=== PATIENT | female | born 1990 | race Caucasian/White ===

== ENCOUNTER 2021-05-11 14:05 | Inpatient (IN) | payer MEDICAID, SELFPAY ==
[2021-05-11 14:06] VITALS: BP 129/84; PULSE 128; RESP 16; TEMP 36.6; O2SAT 97; BMI 27.8
--- NOTE | 2021-05-11 15:15 | HP.PCM.HOS_ITS ---
HPI - General General Date of Admission: 05/11/21 HPI Narrative JHONATAN OLEA, is a 30 F with a PMH as outlined who presents with a complaint of detox from opiates. SHe went through detox once in 2007. She says a few weeks ago, she went through withdrawal at [facility] for opiate withdrawal and benzodiazepine withdrawal. She last used heroin at ~ 4am, and benzodiazepines ~ 5am. She doesnt use IV, but uses POO. She denies any palpitations, dizziness, nausea or vomiting, diarrhea, chest palpitaitions or any other symptoms. Review of systems is otherwise negative. Vitals showed BP of 129/84, ND of 128, RR of 16. CBC, BMP and urine tox were pending. She has been admitted to manage for acute benzo diazepam and opiate withdrawal. [facility] Medical History Anxiety Depression Substance abuse Home Medications baclofen 10 mg PO TID 05/11/21 [History Last Taken Unknown] buspirone [BuSpar] 15 mg PO TID 05/11/21 [History Last Taken Unknown] clonidine HCl 0.1 mg PO TID 05/11/21 [History Last Taken Unknown] gabapentin [Neurontin] 300 mg PO BID 05/11/21 [History Last Taken Unknown] ondansetron HCl [Zofran] 4 mg PO Q6H PRN 05/11/21 [History Last Taken Unknown] quetiapine [Seroquel] 50 mg PO QHS 05/11/21 [History Last Taken Unknown] Allergy/AdvReac Type Severity Reaction Status Date / Time No Known Allergies Allergy Verified 05/11/21 14:07 Social History Smoking Status: Current every day smoker tobacco type: cigarettes ROS Constitutional Constitutional: Denies anorexia, chills, fatigue, fever(s), malaise or weakness Eyes Eyes: Denies change in vision ENT HEENT: Denies dysphagia, headache(s), nasal congestion, sinus pressure or sore throat Cardiovascular Cardiovascular: Reports palpitations and rapid heart rate; Denies chest pain, dyspnea on exertion, edema, lightheadedness, orthopnea, paroxysmal nocturnal dyspnea or syncope Respiratory/Chest Respiratory/Chest: Denies cough, dyspnea, hemoptysis, productive cough, shortness of breath at rest or shortness of breath with exertion Gastrointestinal Gastrointestinal: Denies abdominal pain, constipation, diarrhea, nausea or vomiting Genitourinary Genitourinary: Reports burning urination Musculoskeletal Musculoskeletal: Denies back pain Neurologic Neurologic: Denies confusion, dizziness or focal weakness Psychiatric Psychiatric: Denies anxiety Endocrine Endocrinology: Denies change in body appearance Hematologic/Lymphatic Hematologic/Lymphatic: Denies anemia Vital Signs Vital Signs Vital Signs: 05/11/21 14:06 Temperature 97.9 F Temperature Source Temporal Pulse Rate 128 H Respiratory Rate 16 Blood Pressure 129/84 H Blood Pressure Mean 99 Pulse Ox 97 Oxygen Delivery Method Room Air Weight Weight: 161 lb 13.109 oz Body Mass Index (BMI) 27.8 Physical Exam Const alert, oriented x3 and healthy appearing General Appearance: cooperative HEENT normocephalic, moist oral mucous membranes and oropharynx normal Eyes PERRL and conjunctivae normal Neck no lymphadenopathy Resp normal respiratory effort, no use of accessory muscles and clear to auscultation bilaterally Cardio regular rate, S1 normal heart sound, S2 normal heart sound and no murmurs GI normal to inspection, nondistended, normoactive bowel sounds, soft to palpation, non-tender and non-distended Extremity normal to inspection, full ROM and no clubbing, cyanosis or edema Peripheral Pulses: Yes pulses 2+ throughout Skin no rashes or lesions noted Neuro oriented x3, CN's II-XII intact bilaterally and moves all extremities Sensorium / Orientation: awake and alert Psych affect normal Results Lab / Micro Data Result Diagrams: 05/11/21 17:55 05/11/21 17:55 Assessment & Plan Assessment/Plan (1) Benzodiazepine withdrawal: (2) Opiate withdrawal: PLAN: #Acute opioid withdrawal * admit to med surg with telemetry o/a of tachycardia * CBC, BMP and uriine tox pending * start on opioid withdrawal protocol with buprenorphine * monitor COWS score * #Acute benzodiazepine withdrawal * urine tox pending * start on benzodiazepine withdrawal protocol with ativan * #History of hep C: treament naive. Counseled she would need to be off drugs for 6 months at least to qualiify for treatment. #Nicotine dependence; Nicotine patch 21mg daily DVT prophylaxis: low risk. Encourage ambulation. Charges/Coding Visit Charges Inpatient E&M: 08204 Init Hosp L3
--- NOTE | 2021-05-11 15:20 | EKG12_ITS ---
Test Reason : DETOX Blood Pressure : / mmHG Vent. Rate : 103 BPM Atrial Rate : 103 BPM P-R Int : 152 ms QRS Dur : 072 ms QT Int : 340 ms P-R-T Axes : 041 002 031 degrees QTc Int : 445 ms Sinus tachycardia Otherwise normal ECG Confirmed by DWIGHT WAN, ROLDAN ([id number]), marketing editor MONTANA JOHNSON ([id number]) on 05/12/2021 1:45:43 PM Referred By: YARIEL Confirmed By:ROLDAN QUINTANILLA MD
--- NOTE | 2021-05-11 15:53 | EDS_ITS ---
HPI History of Present Illness Chief Complaint: Substance Abuse Informant: patient Narrative Narrative: Patient presents requesting detox from heroin and benzodiazepine use. She states she uses about a gram of heroin a day and snorts it. She has not injected anything in years. She states she used to use 4-5 2 mg Xanax a day. She is down now. Her last Xanax was last night. Her last heroin use was early this morning. She states she has some mild itching of her skin and feels mild palpitations at this time. She has no physical complaints such as fevers chills nausea or vomiting. No diarrhea at this point. Patient went through detox once in 2007. She was also up at [facility] about 2 weeks ago. She was there she thinks for about 5 or 6 days. She left because she states they were treating her for benzodiazepine withdrawal but never treated her for heroin withdrawal. She has been out for about 6 or 7 days and did go back to using right away. [facility] Medical History Anxiety Depression Substance abuse Home Medications baclofen 10 mg PO TID 05/11/21 [History Last Taken 05/11/21 08:00] buspirone [BuSpar] 15 mg PO TID 05/11/21 [History Last Taken 05/11/21] clonidine HCl 0.1 mg PO TID 05/11/21 [History Last Taken 05/11/21] gabapentin [Neurontin] 300 mg PO BID 05/11/21 [History Last Taken 05/11/21] ondansetron HCl [Zofran] 4 mg PO Q6H PRN 05/11/21 [History Last Taken Unknown] quetiapine [Seroquel] 50 mg PO QHS 05/11/21 [History Last Taken 05/10/21] Allergy/AdvReac Type Severity Reaction Status Date / Time No Known Allergies Allergy Verified 05/11/21 14:07 no surgical history Social History Smoking Status: Current every day smoker tobacco type: cigarettes ROS ROS ED Constitutional Constitutional ED: Denies fever(s) Eyes Eyes: Denies blurry vision ENT ENT ED: Reports rhinorrhea; Denies sore throat Cardiovascular Cardiovascular: Denies chest pain Respiratory/Chest Respiratory/Chest: Denies cough or sputum Gastrointestinal Gastrointestinal: Denies abdominal pain, diarrhea, nausea or vomiting Genitourinary Genitourinary ED: Denies dysuria Musculoskeletal Musculoskeletal: Denies myalgias Integumentary Denies rash Neurologic Neurologic: Denies headache(s) Psychiatric Psychiatric: Reports depression Allergic/Immunologic Allergic/Immunologic ED: Denies urticaria EXAM Physical Exam Const Vital Signs: 05/11/21 14:06 Temperature 97.9 F Temperature Source Temporal Pulse Rate 128 H Respiratory Rate 16 Blood Pressure 129/84 H Blood Pressure Mean 99 Pulse Ox 97 Oxygen Delivery Method Room Air Positive well nourished and well developed General Appearance ED: well developed and NAD HEENT Reports moist mucous membranes Negative for trauma or tenderness Eyes General Eye ED: Negative for pale conjunctiva or scleral icterus Neck no lymphadenopathy Resp normal respiratory effort and clear to auscultation bilaterally Cardio regular rate, regular rhythm and no murmurs GI normal to inspection, nondistended, normoactive bowel sounds and non-tender Palpation: soft Back/Spine no CVA tenderness Extremity normal to inspection General Extremety ED: Negative for tenderness Neuro oriented x3 Sensorium / Orientation: alert Psych mental status grossly normal Skin no rashes or lesions noted and no wounds MDM MDM MDM Narrative Medical decision making narrative: Procedure: Femoral vein blood draw Multiple attempts were done to get blood from this patient. She states that is very hard. She has had to have blood drawn from her groin before. We discussed risks and benefits of this. The area was cleansed and scrubbed. Ultrasound was used to isolate the femoral vein versus artery. The area was anesthetized with 3 cc of 1% lidocaine locally to make it more comfortable for the patient. An 18-gauge was then inserted into the right femoral vein under direct continual visualization. A single puncture where he able to draw back blood easily. It was dark or venous type blood. This was sent off to the lab. She tolerated well. No sign of bleeding at the site. Blood work showed no marked abnormalities. Her tox screen had multiple positives. was negative. I discussed case with the hospitalist and she will be admitted. Lab Data Attestation: I reviewed the patient's lab results. Labs: Laboratory Results - last 24 hr 05/11/21 14:15 Urine Opiates Screen POSITIVE H Urine Methadone Screen NEGATIVE Ur Barbiturates Screen POSITIVE H Ur Phencyclidine Scrn NEGATIVE Ur Amphetamines Screen NEGATIVE U Methamphetamin-MDMA POSITIVE H U Benzodiazepines Scrn NEGATIVE Urine Cocaine Screen NEGATIVE U Cannabinoids Screen NEGATIVE Ur Drug Screen Comment Discharge Plan Dx/Rx/DC Orders Clinical Impression: Benzodiazepine withdrawal, Opiate withdrawal Disposition Disposition: Acute Care Hospital [facility] Discharge Date/Time: 05/11/21 18:14
[2021-05-11 15:56] LABS: Amphetamine Urine VISTA NEGATIVE (<1000 ng/mL); Barbiturate Urine VISTA POSITIVE (< 200 ng/mL); Benzodiazepine Urine VISTA NEGATIVE (< 200 ng/mL); Cocaine Urine VISTA NEGATIVE (< 300 ng/mL); Ecstacy Urine VISTA POSITIVE (< 500 ng/mL); Methadone Urine VISTA NEGATIVE (< 300 ng/mL); PCP Urine VISTA NEGATIVE (< 25 ng/mL); THC Urine VISTA NEGATIVE (< 50 ng/mL); Vista UDS pH Range 5
[2021-05-11 16:47] VITALS: BP 118/82; PULSE 82; RESP 15; TEMP 36.4
--- NOTE | 2021-05-11 17:39 | ED.RN ---
attempt x 4 unsuccessful to obtain labs dr lynn aware
[2021-05-11] MEDS: Lidocaine 1% (20 ml mdv) 20 ML Vial INFILT (18:01)
[2021-05-11 18:08] LABS: Absolute Lymphocyte Count 3.11 X10^3/uL (0.83-4.51); Absolute Neutrophil Count 3.9 X10^3/uL (2.0-7.7); Basophil# 0.06 X10^3/uL; Basophil% 0.7 % (0-1); Eosinophil# 0.44 X10^3/uL; Eosinophils% 5.4 % (0-5); Hematocrit 42.2 % (37-47); Hemoglobin 13.8 g/dL (12.0-15.0); Lymphocyte # 3.11 X10^3/ul (0.83-4.51); Lymphocyte % 38.2 % (19-41); Mean Corp Hgb Conc 32.7 g/dL (32-36); Mean Corpuscular Hgb 29.9 pg (27.0-32.0); Mean Corpuscular Volume 91.5 fL (81-99); Monocyte# 0.57 X10^3/uL; NRBC Flagged by Analyzer 0 % (0-5); Neutrophil # 3.93 X10^3/uL (2.7-7.7); Neutrophil % 48.2 % (47-70); Platelet Count 257 K/mm3 (150-450); RBC Distribution Width CV 12.1 % (11.6-14.6); RBC Distribution Width SD 39.9 fl (35.1-43.9); Red Blood Count 4.61 M/mm3 (4.2-5.4); White Blood Count 8.2 K/mm3 (4.4-11.0)
[2021-05-11 18:18] LABS: Internal QC Validated? YES +Cl - CLEAR BKGD; Pregnancy, Serum, hCG Quali. NEGATIVE Negative
[2021-05-11 18:20] LABS: Alcohol, Blood (Medical)-Serum < 3.0 mg/dL
[2021-05-11 18:31] VITALS: BMI 29.0
[2021-05-11 18:34] LABS: ALB/GLOB Ratio 0.8 RATIO (0.9-2.4); AST(SGOT) 85 U/L (15-37); Alanine Aminotransfer ALT/SGPT 122 U/L (13-56); Alkaline Phosphatase 98 U/L (45-117); Anion Gap 6 (5-15); BUN 3 mg/dL (7-18); BUN/Creat Ratio 5.7 RATIO (10-20); Calcium,Total 8.8 mg/dL (8.5-10.1); Chloride 107 mmol/L (98-107); Creatinine, Serum 0.53 mg/dL (0.55-1.02); EST Glomerular Filtration Rate 143 mL/min (>60); Est Glom Filt Rate - Afr Amer 173 mL/min (>60); Estimated Creatinine Clearance 132.81 ml/min; Globulin 3.9 g/dL (2.2-4.2); Glucose 135 mg/dL (74-106); Protein, Total 6.9 g/dL (6.4-8.2); Sodium Level 143 mmol/L (136-145)
--- NOTE | 2021-05-11 18:38 | PCS.PANDOC ---
PANDEMIC DOCUMENTATION INITIATED: Date: 04/14/2021 Time: 190
[2021-05-11 18:44] VITALS: BP 108/76; PULSE 76; RESP 16; TEMP 36.7; O2SAT 98
[2021-05-11 20:55] VITALS: PULSE 77
[2021-05-11] MEDS: LORazepam 1 MG Tablet 2 MG PO (21:16)
[2021-05-11 22:00] VITALS: PULSE 91
[2021-05-12] VITALS (10 sets, daily range): BP systolic 95–121; BP diastolic 53–72; PULSE 70–100; RESP 16–18; TEMP 36.6–37.1; O2SAT 93–100
[2021-05-12] MEDS: LORazepam 1 MG Tablet 2 MG PO ×4 (01:25→13:22)
--- NOTE | 2021-05-12 10:31 | ADDICTION ---
This video game script writer met with PT to conduct ASAM, MSE, DUDIT assessments and to plan for d/c. PT A+Ox4 and participated actively. All assessments completed, faxed to [facility] and placed in PT's chart. PT plans to direct admit to [facility] for residential treatment and counseling services. Once accepted transportation will be arranged post d/c from [facility].
--- NOTE | 2021-05-12 11:14 | ADDICTION ---
PT was approved for [facility] for residential services. Critical access hospital will provide transportation post d/c from [facility].
[2021-05-12] MEDS: Gabapentin 300 MG Capsule PO ×2 (11:48→20:16)
[2021-05-12] MEDS: cloNIDine HCl 0.1 MG Tablet PO ×2 (11:48→20:16)
[2021-05-12] MEDS: Loperamide 2 MG Capsule PO (11:48)
[2021-05-12] MEDS: COVID-19 VAC,AD26(JANSSEN)/PF 0.5 ML SYRINGE IM (12:14)
[2021-05-12] MEDS: Ondansetron 8 MG Tablet PO ×2 (12:29→20:16)
[2021-05-12 16:00] LABS: Absolute Lymphocyte Count 3.09 X10^3/uL (0.83-4.51); Absolute Neutrophil Count 2.9 X10^3/uL (2.0-7.7); Basophil# 0.04 X10^3/uL; Basophil% 0.6 % (0-1); Eosinophil# 0.36 X10^3/uL; Eosinophils% 5.1 % (0-5); Hematocrit 46.7 % (37-47); Hemoglobin 15.5 g/dL (12.0-15.0); Lymphocyte # 3.09 X10^3/ul (0.83-4.51); Lymphocyte % 44.1 % (19-41); Mean Corp Hgb Conc 33.2 g/dL (32-36); Mean Corpuscular Hgb 29.8 pg (27.0-32.0); Mean Corpuscular Volume 89.6 fL (81-99); Mean Platelet Vol. 11.4 fl (6.2-12.0); Monocyte# 0.58 X10^3/uL; Monocyte% 8.3 % (0-10); NRBC Flagged by Analyzer 0 % (0-5); Neutrophil % 41.3 % (47-70); POSITIVE COUNT YES; Platelet Count 163 K/mm3 (150-450); RBC Distribution Width CV 12.1 % (11.6-14.6); RBC Distribution Width SD 39.4 fl (35.1-43.9); Red Blood Count 5.21 M/mm3 (4.2-5.4)
[2021-05-12 16:25] LABS: Anion Gap 8 (5-15); BUN 4 mg/dL (7-18); BUN/Creat Ratio 8.9 RATIO (10-20); Calcium,Total 9.3 mg/dL (8.5-10.1); Chloride 106 mmol/L (98-107); Creatinine, Serum 0.45 mg/dL (0.55-1.02); EST Glomerular Filtration Rate 173 mL/min (>60); Est Glom Filt Rate - Afr Amer 209 mL/min (>60); Estimated Creatinine Clearance 156.42 ml/min; Glucose 111 mg/dL (74-106); Potassium 4.6 mmol/L (3.5-5.1); Sodium Level 141 mmol/L (136-145)
--- NOTE | 2021-05-12 16:35 | PCM.PN.HOSP ---
Subjective Subjective Feeling better. Was using fentanyl and several green bars of alprazolam daily (illicitly obtained) Objective Data Objective Data Vital Signs: Vital Signs Temp Pulse Resp BP Pulse Ox 36.8 C 91 18 106/72 93 05/12/21 13:21 05/12/21 13:21 05/12/21 13:21 05/12/21 13:21 05/12/21 13:21 Oxygen Delivery Method Room Air Weight: 76.9 kg Body Mass Index (BMI) 29.0 Intake & Output: Intake and Output for Last 24 Hours 05/10/21 05/11/21 05/12/21 23:59 23:59 23:59 Intake Total 560 / 560 Balance 560 / 560 Lab / Micro Data Result Diagrams: 05/11/21 17:55 05/12/21 15:25 Labs: Laboratory Results - last 24 hr 05/11/21 17:55: WBC 8.2, RBC 4.61, Hgb 13.8, Hct 42.2, MCV 91.5, MCH 29.9, MCHC 32.7, RDW Std Deviation 39.9, RDW Coeff of Juan 12.1, Plt Count 257, MPV 10.0, Immature Gran % (Auto) 0.500, Neut % (Auto) 48.2, Lymph % (Auto) 38.2, Duchesne % (Auto) 7.0, Eos % (Auto) 5.4 H, Baso % (Auto) 0.7, Absolute Neuts (auto) 3.9, Absolute Lymphs (auto) 3.11, Nucleated RBC % 0 05/11/21 17:55: Sodium 143, Potassium 4.0, Chloride 107, Carbon Dioxide 30.0, Anion Gap 6, BUN 3 L, Creatinine 0.53 L, Estim Creat Clear Calc 132.81, Est GFR (MDRD) Af Amer 173, Est GFR (MDRD) Non-Af 143, BUN/Creatinine Ratio 5.7 L, Glucose 135 H, Calcium 8.8, Total Bilirubin 0.40, AST 85 H, ALT 122 H, Alkaline Phosphatase 98, Total Protein 6.9, Albumin 3.0 L, Globulin 3.9, Albumin/Globulin Ratio 0.8 L 05/11/21 17:55: Ethyl Alcohol < 3.0 05/11/21 17:55: Serum , Qual NEGATIVE 05/12/21 15:25: Sodium 141, Potassium 4.6, Chloride 106, Carbon Dioxide 27.0, Anion Gap 8, BUN 4 L, Creatinine 0.45 L, Estim Creat Clear Calc 156.42, Est GFR (MDRD) Af Amer 209, Est GFR (MDRD) Non-Af 173, BUN/Creatinine Ratio 8.9 L, Glucose 111 H, Calcium 9.3 Micro: Microbiology 05/11/21 15:47 Nasal Secretion SARS-CoV-2 Antigen (Rapid) - Final Physical Exam Const alert HEENT Head and Scalp: normocephalic Resp normal respiratory effort, no retractions, no use of accessory muscles and clear to auscultation bilaterally Cardio regular rate, regular rhythm, S1 normal heart sound and S2 normal heart sound GI normal to inspection, nondistended, normoactive bowel sounds, soft to palpation, non-tender and non-distended Extremity normal to inspection Assessment & Plan Assessment/Plan (1) Benzodiazepine withdrawal: QUALIFIERS: Complication of substance-induced condition: uncomplicated Qualified Code(s): F13.230 - Sedative, hypnotic or anxiolytic dependence with withdrawal, uncomplicated (2) Opiate withdrawal: PLAN: #Acute opioid withdrawal start on opioid withdrawal protocol with buprenorphine seen by addiction med and pt to be discharged to [facility] for residential when medically ready. #Acute benzodiazepine withdrawal pt states that she uses several green bars of alprazolam/daily tox screen negative for BZDs change from lorazepam to alprazolam 0.5 BID, and if tolerates that, then could taper slowly over the next several weeks. #History of hep C: treament naive. Counseled she would need to be off drugs for 6 months at least to qualiify for treatment. #Nicotine dependence; Nicotine patch 21mg daily DVT prophylaxis: low risk. Encourage ambulation. Charges/Coding Visit Charges Inpatient E&M: 33136 Subs Hosp L2
[2021-05-12 16:36] LABS: Differential Indicated SCAN CRITERIA MET
[2021-05-12 16:44] LABS: Platelet Estimate ADEQUATE (ADEQ); Red Cell Morphology NORM C+C NORMAL (NORM C&C)
[2021-05-12] MEDS: Methocarbamol 750 MG Tablet 1500 MG PO (18:08)
[2021-05-12] MEDS: hydrOXYzine PAM 25 MG Capsule 50 MG PO (18:08)
[2021-05-12] MEDS: traZODone 100 MG Tablet PO (20:16)
[2021-05-12] MEDS: ALPRAZolam 0.5 MG Tablet PO (20:16)
[2021-05-13] MEDS: Methocarbamol 750 MG Tablet 1500 MG PO ×3 (00:20→16:00)
[2021-05-13] MEDS: hydrOXYzine PAM 25 MG Capsule 50 MG PO ×3 (00:20→20:18)
[2021-05-13 03:02] VITALS: BP 88/48; PULSE 86; RESP 14; TEMP 36.8; O2SAT 92
[2021-05-13] MEDS: Gabapentin 300 MG Capsule PO ×2 (06:14→16:00)
[2021-05-13] MEDS: Ondansetron 8 MG Tablet PO ×2 (06:14→16:00)
[2021-05-13 08:43] VITALS: BP 102/66; PULSE 100; RESP 18; TEMP 36.4; O2SAT 96
[2021-05-13] MEDS: ALPRAZolam 0.5 MG Tablet PO ×2 (10:13→21:17)
[2021-05-13] MEDS: Buprenorphine HCl 2 MG TAB.SUBL SL ×2 (10:23→18:03)
--- NOTE | 2021-05-13 11:23 | ADDICTION ---
Addiction therapist visited with patient today. She reports she is feeling significant w/d symptoms. TW informed nurse of pt's report.
[2021-05-13] MEDS: cloNIDine HCl 0.1 MG Tablet PO ×2 (12:59→20:18)
--- NOTE | 2021-05-13 14:12 | CASEMGMT ---
Addendum entered by Chichi Allen 05/13/21 17:51: SW received another message from CIRO Hodge at [employer] ([phone]) requesting update on discharge. SW placed a call to CIRO Hodge at [employer] and left message. Original Note: Social Work Note SW received call from CIRO Hodge with [employer] requesting update ([phone]). SW placed a call to CIRO Hodge with [employer] and left message. Chichi Allen AGENCY OWNER, [employer]
--- NOTE | 2021-05-13 14:56 | PN.HOSP_ITS ---
Subjective Subjective Still feels ill. Informs me that she has not been taking the buprenorphine because she is concerned about precipitated withdrawal. Patient apparently has had precipitated withdrawal before in the past with Suboxone. Objective Data Objective Data Vital Signs: Vital Signs Temp Pulse Resp BP Pulse Ox 36.4 C L 100 18 102/66 96 05/13/21 08:43 05/13/21 08:43 05/13/21 08:43 05/13/21 08:43 05/13/21 08:43 Oxygen Delivery Method Room Air Weight: 76.9 kg Body Mass Index (BMI) 29.0 Intake & Output: Intake and Output for Last 24 Hours 05/11/21 05/12/21 05/13/21 23:59 23:59 23:59 Intake Total 920 / 920 360 / 360 Balance 920 / 920 360 / 360 Lab / Micro Data Result Diagrams: 05/12/21 15:25 05/12/21 15:25 Labs: Laboratory Results - last 24 hr 05/12/21 15:25: WBC 7.0, RBC 5.21, Hgb 15.5 H, Hct 46.7, MCV 89.6, MCH 29.8, MCHC 33.2, RDW Std Deviation 39.4, RDW Coeff of Juan 12.1, Plt Count 163, MPV 11 .4, Immature Gran % (Auto) 0.600, Neut % (Auto) 41.3 L, Lymph % (Auto) 44.1 H, Nuckolls % (Auto) 8.3, Eos % (Auto) 5.1 H, Baso % (Auto) 0.6, Absolute Neuts (auto) 2.9, Absolute Lymphs (auto) 3.09, Nucleated RBC % 0, Platelet Estimate ADEQUATE, RBC Morphology NORM C+C 05/12/21 15:25: Sodium 141, Potassium 4.6, Chloride 106, Carbon Dioxide 27.0, Anion Gap 8, BUN 4 L, Creatinine 0.45 L, Estim Creat Clear Calc 156.42, Est GFR (MDRD) Af Amer 209, Est GFR (MDRD) Non-Af 173, BUN/Creatinine Ratio 8.9 L, Glucose 111 H, Calcium 9.3 Micro: Microbiology 05/11/21 15:47 Nasal Secretion SARS-CoV-2 Antigen (Rapid) - Final Physical Exam Const alert Resp normal respiratory effort, no retractions, no use of accessory muscles and clear to auscultation bilaterally Cardio regular rate, regular rhythm, S1 normal heart sound and S2 normal heart sound GI normal to inspection, nondistended, normoactive bowel sounds, soft to palpation, non-tender and non-distended Extremity normal to inspection Assessment & Plan Assessment/Plan (1) Benzodiazepine withdrawal: QUALIFIERS: Complication of substance-induced condition: uncomplicated Qualified Code(s): F13.230 - Sedative, hypnotic or anxiolytic dependence with withdrawal, uncomplicated (2) Opiate withdrawal: PLAN: #Acute opioid withdrawal * Patient was admitted on the and has yet to receive buprenorphine when I saw her earlier this morning. I told her that if she does not want and that certainly her right is she would not sustain any life-threatening injuries with opiate withdrawal. But she is here to get help. I told her that if she does not want to buprenorphine we will respect her decision but I would have to discharge her to continue with her therapy as outpatient. Eventually, patient did agree to take it and it was started today roughly 2 days after was ordered. * seen by addiction med and pt to be discharged to [facility] for residential when medically ready. #Acute benzodiazepine withdrawal * pt states that she uses several green bars of alprazolam/daily * tox screen negative for BZDs * change from lorazepam to alprazolam 0.5 BID, and if tolerates that, then could taper slowly over the next several weeks. #History of hep C: treament naive. Counseled she would need to be off drugs for 6 months at least to qualiify for treatment. #Nicotine dependence; Nicotine patch 21mg daily DVT prophylaxis: low risk. Encourage ambulation. Patient was vaccinated with a [employer] COVID-19 vaccine May 12. Charges/Coding Visit Charges Inpatient E&M: 48602 Subs Hosp L2
[2021-05-13 15:51] VITALS: BP 125/84; PULSE 83; RESP 16; TEMP 37; O2SAT 96
[2021-05-13 20:07] VITALS: BP 134/81; PULSE 82; RESP 16; TEMP 36.8; O2SAT 97
[2021-05-13] MEDS: Ibuprofen 600 MG Tablet PO (20:17)
[2021-05-13] MEDS: traZODone 100 MG Tablet PO (20:18)
[2021-05-14 02:16] VITALS: BP 96/63; PULSE 63; RESP 16; TEMP 36.5; O2SAT 96
[2021-05-14] MEDS: Buprenorphine HCl 2 MG TAB.SUBL SL ×3 (02:24→18:47)
[2021-05-14] MEDS: Ondansetron 8 MG Tablet PO ×2 (08:10→20:41)
[2021-05-14] MEDS: Gabapentin 300 MG Capsule PO ×2 (08:12→17:22)
[2021-05-14] MEDS: hydrOXYzine PAM 25 MG Capsule 50 MG PO ×2 (10:25→20:41)
[2021-05-14] MEDS: Ibuprofen 600 MG Tablet PO (10:26)
[2021-05-14] MEDS: Methocarbamol 750 MG Tablet 1500 MG PO ×2 (10:26→17:22)
[2021-05-14] MEDS: ALPRAZolam 0.5 MG Tablet PO (10:26)
[2021-05-14 10:28] VITALS: BP 104/68; PULSE 100; RESP 16; TEMP 36.7; O2SAT 99
[2021-05-14 13:11] VITALS: BP 114/71; PULSE 96
[2021-05-14] MEDS: Dicyclomine 10 MG Capsule 20 MG PO ×2 (13:16→20:41)
[2021-05-14] MEDS: cloNIDine HCl 0.1 MG Tablet PO (13:16)
--- NOTE | 2021-05-14 14:13 | PN.HOSP_ITS ---
Subjective Subjective Still feels ill. States she feels worse today. Objective Data Objective Data Vital Signs: Vital Signs Temp Pulse Resp BP Pulse Ox 36.7 C 96 16 114/71 99 05/14/21 10:28 05/14/21 13:11 05/14/21 10:28 05/14/21 13:11 05/14/21 10:28 Oxygen Delivery Method Room Air Weight: 76.9 kg Body Mass Index (BMI) 29.0 Intake & Output: Intake and Output for Last 24 Hours 05/12/21 05/13/21 05/14/21 23:59 23:59 23:59 Intake Total 920 / 920 360 / 360 Balance 920 / 920 360 / 360 Lab / Micro Data Result Diagrams: 05/12/21 15:25 05/12/21 15:25 Micro: Microbiology 05/11/21 15:47 Nasal Secretion SARS-CoV-2 Antigen (Rapid) - Final Physical Exam Const alert Constitutional Narrative: Uncomfortable. Nontoxic. Resp normal respiratory effort, no retractions, no use of accessory muscles and clear to auscultation bilaterally Cardio regular rate, regular rhythm, S1 normal heart sound and S2 normal heart sound GI normal to inspection, nondistended, normoactive bowel sounds, soft to palpation, non-tender and non-distended Assessment & Plan Assessment/Plan (1) Benzodiazepine withdrawal: QUALIFIERS: Complication of substance-induced condition: uncomplicated Qualified Code(s): F13.230 - Sedative, hypnotic or anxiolytic dependence with withdrawal, uncomplicated (2) Opiate withdrawal: PLAN: #Acute opioid withdrawal * Patient was admitted on the and has yet to receive buprenorphine when I saw her earlier this morning. I told her that if she does not want and that certainly her right is she would not sustain any life-threatening injuries with opiate withdrawal. But she is here to get help. I told her that if she does not want to buprenorphine we will respect her decision but I would have to discharge her to continue with her therapy as outpatient. Eventually, patient did agree to take it and it was started today roughly 2 days after was ordered. * seen by addiction med and pt to be discharged to [facility] for residential when medically ready. #Acute benzodiazepine withdrawal * pt states that she uses several green bars of alprazolam/daily * tox screen negative for BZDs * Still feeling ill. Will increase the alprazolam to 1 mg 3 times daily and observe. #History of hep C: treament naive. Counseled she would need to be off drugs for 6 months at least to qualiify for treatment. #Nicotine dependence; Nicotine patch 21mg daily DVT prophylaxis: low risk. Encourage ambulation. Patient was vaccinated with a [employer] COVID-19 vaccine May 12. Charges/Coding Visit Charges Inpatient E&M: 85979 Subs Hosp L2
[2021-05-14] MEDS: ALPRAZolam 0.5 MG Tablet 1 MG PO ×2 (15:53→20:41)
[2021-05-14 17:16] VITALS: BP 98/60; PULSE 72; RESP 16; TEMP 36.6
[2021-05-14 20:25] VITALS: BP 101/63; PULSE 78; RESP 16; TEMP 36.6; O2SAT 97
[2021-05-14] MEDS: traZODone 100 MG Tablet PO (20:41)
[2021-05-15 02:12] VITALS: BP 98/67; PULSE 64; RESP 14; TEMP 36.4; O2SAT 100
[2021-05-15] MEDS: Buprenorphine HCl 2 MG TAB.SUBL SL ×2 (02:17→10:22)
[2021-05-15] MEDS: hydrOXYzine PAM 25 MG Capsule 50 MG PO ×2 (04:02→10:22)
[2021-05-15] MEDS: Dicyclomine 10 MG Capsule 20 MG PO (04:02)
[2021-05-15] MEDS: Gabapentin 300 MG Capsule PO (04:02)
[2021-05-15] MEDS: Methocarbamol 750 MG Tablet 1500 MG PO (04:02)
[2021-05-15] MEDS: Senna/Docusate Sodium 1 Tablet 2 TABLET PO (06:06)
[2021-05-15] MEDS: ALPRAZolam 0.5 MG Tablet 1 MG PO (06:07)
--- NOTE | 2021-05-15 09:55 | ADDICTION ---
Pt is requesting to leave. She reports that she feels better and would like to got to the [facility]. This worker placed a called to inquire admission a PT leaving AMA. Waiting response.
[2021-05-15 10:18] VITALS: BP 121/75; PULSE 102; RESP 16; TEMP 36.1; O2SAT 98
[2021-05-15] MEDS: Ibuprofen 600 MG Tablet PO (10:22)
[2021-05-15] MEDS: cloNIDine HCl 0.1 MG Tablet PO (10:33)
--- NOTE | 2021-05-15 13:28 | PCM.DC.SUM ---
Providers Date of Admission: 05/11/21 Primary Care Physician: No Primary Care Phys Reason For Visit: ACUTE OPIOID AND BENZODIAZEPINE WITHDRAWAL Diagnosis Discharge Diagnosis (1) Benzodiazepine withdrawal: Status: Acute Code(s): F13.239 - Sedative, hypnotic or anxiolytic dependence with withdrawal, unspecified Qualifiers: Complication of substance-induced condition: uncomplicated Qualified Code(s): F13.230 - Sedative, hypnotic or anxiolytic dependence with withdrawal, uncomplicated (2) Opiate withdrawal: Status: Acute Code(s): F11.23 - Opioid dependence with withdrawal Medications at Discharge Home Medications baclofen 10 mg PO TID 05/11/21 buspirone [BuSpar] 15 mg PO TID 05/11/21 clonidine HCl 0.1 mg PO TID 05/11/21 gabapentin [Neurontin] 300 mg PO BID 05/11/21 ondansetron HCl [Zofran] 4 mg PO Q6H PRN 05/11/21 quetiapine [Seroquel] 50 mg PO QHS 05/11/21 Hospital Course Operations None Procedures None Summary of Care Provided Minutes Spent on Discharge: 28 Hospital Course: This is a 30-year-old female presents for fentanyl and benzodiazepine withdrawal. Patient is benzodiazepine she uses green bars. Patient was started on buprenorphine, however did not take that until the because she was worried about precipitated withdrawal. Discussed the patient that that is more associated with Suboxone and Subutex. Patient finally agreed to take and started on the . Patient was also started on benzodiazepines to help with her benzodiazepine withdrawal. Patient was on lorazepam changed over to alprazolam. Patient was on 0.5 mg of loprazolam twice daily on the 15 stated that she was feeling worse so the alprazolam was an increased to 1 mg 3 times daily. Today, the patient feels much better and wants to go home. She does complain of abdominal pain. I told her that we would need to have her have less somatic complaints prior to discharge and given that she was just started on phenobarbital that another day would be recommended. Patient stated that she just wants to get out smoke. Told her that we just need to have another day before we can look to discharge her to the residential program. Patient continued to be completed and I told her that we are try to help her and so that maintain sobriety and that she would need to be more medically optimized to enter into the residential program. I told her that this is a voluntary program and that she is certainly free to leave AGAINST MEDICAL ADVICE, but I would not be discharging her. Later today, addiction medicine went and spoke with her and she insisted on leaving AGAINST MEDICAL ADVICE. They later notified me that the patient stated that she was willing to go to the residential program after Wednesday when she has a court appointment. Those clear that the patient was getting go to a residential program directly from this hospital. Is concerned the patient is going to relapse and began using again but she is free to leave on her own accord. Physical Exam Const alert, oriented x3 and no apparent distress Constitutional Narrative: flat affect. Weight / BMI Weight Weight: 76.9 kg Body Mass Index (BMI) 29.0 ABG / Lab / Microbiology Data Result Diagrams: 05/12/21 15:25 05/12/21 15:25 Microbiology: Microbiology 05/11/21 15:47 Nasal Secretion SARS-CoV-2 Antigen (Rapid) - Final D/C Instructions Discharge Diet: No restrictions Meaningful Use Info Meaningful Use Diagnoses (Choose all that apply): None applicable Discharge Plan Admission Admit Date/Time: 05/11/21 15:37 Primary Reason for Your Visit: Fentanyl and benzodiazepine withdrawal. Attending Provider: Canelo Powell Primary Care Provider: Care PhysicianLeilani Primary Discharge Orders/Prescriptions Prescriptions: No Action clonidine HCl 0.1 mg Tablet 0.1 mg PO TID RF: 0 ondansetron HCl [Zofran] 4 mg Tablet 4 mg PO Q6H PRN (Reason: Nausea) RF: 0 baclofen 10 mg Tablet 10 mg PO TID RF: 0 gabapentin [Neurontin] 300 mg Capsule 300 mg PO BID RF: 0 buspirone [BuSpar] 15 mg Tablet 15 mg PO TID RF: 0 quetiapine [Seroquel] 50 mg Tablet 50 mg PO QHS RF: 0 Referrals / Follow Up: Care Physician,Leilani Primary [Primary Care Provider] - Disposition Disposition (needs filled in before D/C Order can be placed): Against Medical Advice Charges/Coding Visit Charges Inpatient E&M: 61377 Disch Hosp
--- NOTE | 2021-05-15 13:57 | NURSING ---
Late entry: at 1130 pt states wanting to leave AMA took form into pt and she signed the AMA.. pt called for ride and her ride will not be here until 1700. Talked with pt and pt will wait for her ride down at the main entrance. pt and belongs moved.
== END 2021-05-15 13:25 | disposition left against medical advice (07) | DRG 770 ==
LOC: ED 15:20 → MS3 15:51
PROVIDERS: Admitting Provider Student in an Organized Health Care Education/Training Program; Emergency Provider Emergency Medicine
DX: F11.23 Opioid dependence with withdrawal (principal); F13.230 Sedative, hypnotic or anxiolytic dependence with withdrawal, uncomplicated; F41.9 Anxiety disorder, unspecified; F32.9 Major depressive disorder, single episode, unspecified; Z23 Encounter for immunization; Z79.899 Other long term (current) drug therapy; F17.210 Nicotine dependence, cigarettes, uncomplicated; B19.20 Unspecified viral hepatitis C without hepatic coma
CPT/HCPCS: 0031A; 36415; 80048; 80053; 80307; 82077; 84703; 85025; 87426; 91303; 93005; 99283

== ENCOUNTER 2021-09-29 14:45 | Inpatient (IN) | payer MEDICAID, SELFPAY ==
[2021-09-29 14:46] VITALS: BP 97/64; PULSE 78; RESP 16; TEMP 36; O2SAT 94; BMI 29.1
[2021-09-29 15:58] VITALS: BP 91/62; PULSE 67; RESP 15; O2SAT 96
--- NOTE | 2021-09-29 16:00 | EDS_ITS ---
HPI History of Present Illness Chief Complaint: Substance Abuse Narrative Narrative: 31-year-old female presenting with desire for detox from fentanyl and benzodiazepines. She states she last use last evening. She states I was really high last night. She denies doing any drugs or alcohol today. Patient does have history of both abuse and detox from his medications. Patient states she took all of her medications today. She denies homicidal suicidal ideation. [facility] Medical History (Updated 09/29/21 @ 18:15 by Bailey Richards NP-C) Anxiety Depression Smoker Substance abuse Home Medications buspirone [BuSpar] 15 mg PO TID 05/11/21 [History Last Taken 05/11/21] clonidine HCl 0.1 mg PO TID 05/11/21 [History Last Taken 05/11/21] ondansetron HCl [Zofran] 4 mg PO Q6H PRN 05/11/21 [History Last Taken Unknown] quetiapine [Seroquel] 50 mg PO QHS 05/11/21 [History Last Taken 05/10/21] melatonin 5 mg PO QHS 09/29/21 [History Last Taken Unknown] topiramate 50 mg PO BID 09/29/21 [History Last Taken Unknown] trazodone 50 mg PO QHS 09/29/21 [History Last Taken Unknown] Allergy/AdvReac Type Severity Reaction Status Date / Time No Known Allergies Allergy Verified 09/29/21 14:45 Social History Smoking Status: Current every day smoker tobacco type: cigarettes ROS ROS ED Constitutional Constitutional ED: Denies chills or fever(s) Eyes Eyes: Denies blurry vision or change in vision ENT ENT ED: Denies rhinorrhea or sore throat Cardiovascular Cardiovascular: Denies chest pain or palpitations Respiratory/Chest Respiratory/Chest: Denies cough or dyspnea Gastrointestinal Gastrointestinal: Denies abdominal pain, nausea or vomiting Genitourinary Genitourinary ED: Denies dysuria or urinary frequency Musculoskeletal Musculoskeletal: Reports back pain; Denies arthralgias or myalgias Integumentary Denies Abrasions or rash Neurologic Neurologic: Denies headache(s) or paresthesias Psychiatric Psychiatric: Denies suicidal ideation or suicidal thoughts EXAM Physical Exam Const Vital Signs: 09/29/21 14:46 09/29/21 15:58 09/29/21 17:04 Temperature 96.8 F L Temperature Source Temporal Pulse Rate 78 67 69 Respiratory Rate 16 15 17 Blood Pressure 97/64 91/62 94/57 L Blood Pressure Mean 75 71 69 Pulse Ox 94 96 98 Oxygen Delivery Method Room Air Room Air Room Air Positive well nourished General Appearance ED: NAD HEENT Reports moist mucous membranes atraumatic Eyes PERRL and EOMs intact bilaterally Resp normal respiratory effort and clear to auscultation bilaterally Cardio regular rate and regular rhythm Neuro oriented x3 Sensorium / Orientation: alert Psych mental status grossly normal and thought process normal Skin Lesions: no lesions Rashes: no rashes MDM MDM MDM Narrative Medical decision making narrative: Patient resenting for detox. She does appear to be high on something currently. I attempted to give her some naloxone however she refused this. Blood pressure was slightly low at 97/64 however looking back in the medical history her blood pressure is not much higher than is usually. Her CBC and CMP are fairly unremarkable with exception of the AST and ALT which are elevated previously. hCG is negative. Urine drug screen is positive for amphetamines and benzodiazepines. Patient does do fentanyl and this may not be caught on routine urine drug screen. EtOH is negative. Discus sed with hospitalist for admission after medically cleared. Impression: 1. Fentanyl abuse 2. Benzodiazepine abuse 3. Presentation for detox from benzodiazepine fentanyl. Lab Data Attestation: I reviewed the patient's lab results. Labs: Laboratory Results - last 24 hr 09/29/21 09/29/21 09/29/21 16:25 16:25 16:25 WBC 8.1 RBC 4.75 Hgb 14.5 Hct 40.8 MCV 85.9 MCH 30.5 MCHC 35.5 RDW Std Deviation 39.3 RDW Coeff of Juan 12.5 Plt Count 225 MPV 10.1 Immature Gran % (Auto) 0.200 Neut % (Auto) 43.1 L Lymph % (Auto) 43.4 H [place] % (Auto) 6.3 Eos % (Auto) 6.5 H Baso % (Auto) 0.5 Absolute Neuts (auto) 3.5 Absolute Lymphs (auto) 3.50 Nucleated RBC % 0 Sodium 139 Potassium 3.5 Chloride 107 Carbon Dioxide 27.0 Anion Gap 5 BUN 12 Creatinine 0.74 Estim Creat Clear Calc 94.25 Est GFR (MDRD) Af Amer 118 Est GFR (MDRD) Non-Af 97 BUN/Creatinine Ratio 16.3 Glucose 110 H Calcium 8.8 Total Bilirubin 0.50 AST 157 H ALT 118 H Alkaline Phosphatase 97 Total Protein 7.5 Albumin 3.6 Globulin 3.9 Albumin/Globulin Ratio 0.9 Serum , Qual Urine Opiates Screen Urine Methadone Screen Ur Barbiturates Screen Ur Phencyclidine Scrn Ur Amphetamines Screen U Methamphetamin-MDMA U Benzodiazepines Scrn Urine Cocaine Screen U Cannabinoids Screen Ur Drug Screen Comment Ethyl Alcohol < 3.0 09/29/21 09/29/21 16:25 16:52 WBC RBC Hgb Hct MCV MCH MCHC RDW Std Deviation RDW Coeff of Juan Plt Count MPV Immature Gran % (Auto) Neut % (Auto) Lymph % (Auto) [place] % (Auto) Eos % (Auto) Baso % (Auto) Absolute Neuts (auto) Absolute Lymphs (auto) Nucleated RBC % Sodium Potassium Chloride Carbon Dioxide Anion Gap BUN Creatinine Estim Creat Clear Calc Est GFR (MDRD) Af Amer Est GFR (MDRD) Non-Af BUN/Creatinine Ratio Glucose Calcium Total Bilirubin AST ALT Alkaline Phosphatase Total Protein Albumin Globulin Albumin/Globulin Ratio Serum , Qual NEGATIVE Urine Opiates Screen NEGATIVE Urine Methadone Screen NEGATIVE Ur Barbiturates Screen NEGATIVE Ur Phencyclidine Scrn NEGATIVE Ur Amphetamines Screen NEGATIVE U Methamphetamin-MDMA POSITIVE H U Benzodiazepines Scrn POSITIVE H Urine Cocaine Screen NEGATIVE U Cannabinoids Screen NEGATIVE Ur Drug Screen Comment Ethyl Alcohol Discharge Plan Triage Chief Complaint: Substance Abuse ED Provider: Yoel Reid
[2021-09-29] MEDS: 0.9% Normal Saline 1,000 ML 999 ML IV (16:44)
--- NOTE | 2021-09-29 16:45 | ED.RN ---
pt refused Narcan. pt is alert and oriented, but appears sedated. dr was called into room to evaluate patient and Narcan ordered at that time. was informed of refusal. shima kraft rn [id number]
[2021-09-29 16:49] LABS: Absolute Neutrophil Count 3.5 X10^3/uL (2.0-7.7); Basophil# 0.04 X10^3/uL; Basophil% 0.5 % (0-1); Eosinophil# 0.52 X10^3/uL; Eosinophils% 6.5 % (0-5); Hematocrit 40.8 % (37-47); Hemoglobin 14.5 g/dL (12.0-15.0); Lymphocyte % 43.4 % (19-41); Mean Corp Hgb Conc 35.5 g/dL (32-36); Mean Corpuscular Hgb 30.5 pg (27.0-32.0); Mean Corpuscular Volume 85.9 fL (81-99); Mean Platelet Vol. 10.1 fl (6.2-12.0); Monocyte# 0.51 X10^3/uL; Monocyte% 6.3 % (0-10); NRBC Flagged by Analyzer 0 % (0-5); Neutrophil # 3.47 X10^3/uL (2.7-7.7); Neutrophil % 43.1 % (47-70); Platelet Count 225 K/mm3 (150-450); RBC Distribution Width CV 12.5 % (11.6-14.6); RBC Distribution Width SD 39.3 fl (35.1-43.9); Red Blood Count 4.75 M/mm3 (4.2-5.4); White Blood Count 8.1 K/mm3 (4.4-11.0)
[2021-09-29 17:04] VITALS: BP 94/57; PULSE 69; RESP 17; O2SAT 98
[2021-09-29 17:08] LABS: ALB/GLOB Ratio 0.9 RATIO (0.9-2.4); AST(SGOT) 157 U/L (15-37); Alanine Aminotransfer ALT/SGPT 118 U/L (13-56); Albumin, Serum 3.6 g/dL (3.2-5.0); Alkaline Phosphatase 97 U/L (45-117); Anion Gap 5 (5-15); BUN 12 mg/dL (7-18); BUN/Creat Ratio 16.3 RATIO (10-20); Calcium,Total 8.8 mg/dL (8.5-10.1); Chloride 107 mmol/L (98-107); Creatinine, Serum 0.74 mg/dL (0.55-1.02); EST Glomerular Filtration Rate 97 mL/min (>60); Est Glom Filt Rate - Afr Amer 118 mL/min (>60); Estimated Creatinine Clearance 94.25 ml/min; Globulin 3.9 g/dL (2.2-4.2); Glucose 110 mg/dL (74-106); Potassium 3.5 mmol/L (3.5-5.1); Protein, Total 7.5 g/dL (6.4-8.2); Sodium Level 139 mmol/L (136-145)
[2021-09-29 17:11] LABS: Alcohol, Blood (Medical)-Serum < 3.0 mg/dL
[2021-09-29 17:12] LABS: Internal QC Validated? YES +Cl - CLEAR BKGD; Pregnancy, Serum, hCG Quali. NEGATIVE Negative
[2021-09-29 17:26] LABS: Amphetamine Urine VISTA NEGATIVE (<1000 ng/mL); Barbiturate Urine VISTA NEGATIVE (< 200 ng/mL); Benzodiazepine Urine VISTA POSITIVE (< 200 ng/mL); Cocaine Urine VISTA NEGATIVE (< 300 ng/mL); Ecstacy Urine VISTA POSITIVE (< 500 ng/mL); Methadone Urine VISTA NEGATIVE (< 300 ng/mL); PCP Urine VISTA NEGATIVE (< 25 ng/mL); THC Urine VISTA NEGATIVE (< 50 ng/mL); Vista UDS pH Range 5
--- NOTE | 2021-09-29 17:45 | CM.ED ---
Addendum entered by Keyonna Cruz 09/29/21 17:50: Telephone call to Nga Aldridge. Treatment navigator. This long term care social worker updated on patient admission to [facility]. JESSE Knight Original Note: Social Work Consult: Substance Abuse Referral source: Self referral Attempted to meet with patient in room. Patient sleeping and did not wake up when this long term care social worker attempted to wake patient. This long term care social worker updated nursing. Nursing to patient room. Will continue to follow. LIZA Knight
[2021-09-29 17:47] VITALS: BP 99/71; PULSE 57; RESP 16; TEMP 36.7; O2SAT 95
--- NOTE | 2021-09-29 17:51 | NURSING ---
314 BENZO, FENTANYL DETOX NUAMAH
--- NOTE | 2021-09-29 18:04 | HP.PCM_ITS ---
Documented by User: IGGY Latham 09/29/21 18:20 HPI - General General Date of Admission: 09/29/21 Date of Service: 09/29/21 Chief Complaint: Benzo and opiate detox HPI Narrative JHONATAN OLEA, is a 31 F who presents with desire to detox from benzodiazepines and opiates. Patient reports that she has not used any drugs today and her last use was last night however patient appears lethargic, slurring her words. Patient reports that she uses opiates and benzodiazepines, urine drug screen positive for benzos and methamphetamines. Patient reports that she uses at least 1 g of fentanyl each day as well as 4 to 6 mg of Xanax daily. Patient reports that she initially went to [facility] to complete residential program however because patient is actively using and has not went through detox she was sent here to complete detox prior to entering residential program. It is of note that patient refused Narcan in the ER despite the fact that her blood pressure is low and she is lethargic and slurring her words. Patient's only medical history includes anxiety and depression. Patient has completed detox program prior. [facility] Medical History (Updated 09/29/21 @ 19:04 by Chichi Olivera) Anxiety Depression Migraines Seizures Smoker Substance abuse Home Medications buspirone [BuSpar] 15 mg PO TID 05/11/21 [History Last Taken 05/11/21] clonidine HCl 0.1 mg PO TID 05/11/21 [History Last Taken 05/11/21] ondansetron HCl [Zofran] 4 mg PO Q6H PRN 05/11/21 [History Last Taken Unknown] quetiapine [Seroquel] 50 mg PO QHS 05/11/21 [History Last Taken 05/10/21] melatonin 5 mg PO QHS 09/29/21 [History Last Taken Unknown] topiramate 50 mg PO BID 09/29/21 [History Last Taken Unknown] trazodone 50 mg PO QHS 09/29/21 [History Last Taken Unknown] Allergy/AdvReac Type Severity Reaction Status Date / Time No Known Allergies Allergy Verified 09/29/21 14:45 Family History unable to obtain unable to obtain Surgical History (Updated 09/29/21 @ 19:04 by Chichi Olivera) H/O dilation and curettage Surgical History no surgical history no surgical history Social History Smoking Status: Current every day smoker tobacco type: cigarettes ROS Constitutional Constitutional: Denies anorexia, chills, fatigue, fever(s) or weakness Cardiovascular Cardiovascular: Denies chest pain, edema, palpitations or syncope Respiratory/Chest Respiratory/Chest: Denies cough, shortness of breath at rest, shortness of breath with exertion or wheezing Gastrointestinal Gastrointestinal: Denies abdominal pain, constipation, diarrhea, nausea or vomiting Genitourinary Genitourinary: Denies dysuria or hematuria Musculoskeletal Musculoskeletal: Denies back pain, extremity pain, joint pain or joint stiffness Integumentary Integumentary: Denies dry skin or jaundice Neurologic Neurologic: Reports abnormal speech; Denies abnormal gait, confusion or dizziness Psychiatric Psychiatric: Reports anxiety and depression Endocrine Endocrinology: Denies change in body appearance Hematologic/Lymphatic Hematologic/Lymphatic: Denies anemia Vital Signs Vital Signs Vital Signs: 09/29/21 14:46 09/29/21 15:58 09/29/21 17:04 Temperature 96.8 F L Temperature Source Temporal Pulse Rate 78 67 69 Respiratory Rate 16 15 17 Blood Pressure 97/64 91/62 94/57 L Blood Pressure Mean 75 71 69 Pulse Ox 94 96 98 Oxygen Delivery Method Room Air Room Air Room Air 09/29/21 17:47 Temperature 98.0 F Temperature Source Temporal Pulse Rate 57 L Respiratory Rate 16 Blood Pressure 99/71 Blood Pressure Mean 80 Pulse Ox 95 Oxygen Delivery Method Room Air Weight Weight: 169 lb 12.095 oz Body Mass Index (BMI) 29.1 Physical Exam Const oriented x3 General Appearance: uncooperative and lethargic HEENT normocephalic and head/scalp atraumatic Eyes conjunctivae normal and no scleral icterus Neck no lymphadenopathy and supple General: trachea midline Resp normal respiratory effort, normal air movement and clear to auscultation bilaterally Cardio regular rate, regular rhythm, S1 normal heart sound, S2 normal heart sound and peripheral pulses 2+ throughout Rate: bradycardia GI normal to inspection, nondistended, normoactive bowel sounds, soft to palpation and non-tender Extremity normal capillary refill and no clubbing, cyanosis or edema General Extremity: no tenderness to palpation of joints or extremities Skin General Skin Exam: no breakdown and turgor normal Lesions: no lesions Rashes: no rashes Neuro Sensorium / Orientation: lethargic Speech: speech abnormal Details: Positive for slurred Psych Appearance: unkempt and disheveled Attitude: uncooperative Speech: slurred Mood & Affect: irritable Thought Process: disorganized Results Lab / Micro Data Result Diagrams: 09/29/21 16:25 09/29/21 16:25 Labs: Laboratory Results - last 24 hr 09/29/21 16:25: WBC 8.1, RBC 4.75, Hgb 14.5, Hct 40.8, MCV 85.9, MCH 30.5, MCHC 35.5, RDW Std Deviation 39.3, RDW Coeff of Juan 12.5, Plt Count 225, MPV 10.1, Immature Gran % (Auto) 0.200, Neut % (Auto) 43.1 L, Lymph % (Auto) 43.4 H, [place] % (Auto) 6.3, Eos % (Auto) 6.5 H, Baso % (Auto) 0.5, Absolute Neuts (auto) 3.5, Absolute Lymphs (auto) 3.50, Nucleated RBC % 0 09/29/21 16:25: Sodium 139, Potassium 3.5, Chloride 107, Carbon Dioxide 27.0, Anion Gap 5, BUN 12, Creatinine 0.74, Estim Creat Clear Calc 94.25, Est GFR (MDRD) Af Amer 118, Est GFR (MDRD) Non-Af 97, BUN/Creatinine Ratio 16.3, Glucose 110 H, Calcium 8.8, Total Bilirubin 0.50, AST 157 H, ALT 118 H, Alkaline Phosphatase 97, Total Protein 7.5, Albumin 3.6, Globulin 3.9, Albumin/Globulin Ratio 0.9 09/29/21 16:25: Ethyl Alcohol < 3.0 09/29/21 16:25: Serum , Qual NEGATIVE 09/29/21 16:52: Urine Opiates Screen NEGATIVE, Urine Methadone Screen NEGATIVE, Ur Barbiturates Screen NEGATIVE, Ur Phencyclidine Scrn NEGATIVE, Ur Amphetamines Screen NEGATIVE, U Methamphetamin-MDMA POSITIVE H, U Benzodiazepines Scrn POSITIVE H, Urine Cocaine Screen NEGATIVE, U Cannabinoids Screen NEGATIVE, Ur Drug Screen Comment Assessment & Plan Assessment/Plan (1) Substance abuse: (2) Smoker: (3) Desire for detoxification: PLAN: 1. Desire for detoxification from benzodiazepines and opiates -Patient admitted to [facility] as part of ramp program -Phenobarbital and buprenorphine taper ordered -Supportive medications ordered as needed as well -Case management consulted for coordination with 180. Patient went to 180 prior to arrival to ER however because patient was still actively using 180 inform patient that she need to go through detox before she could be admitted to residential program. -Patient states that she has not used today however patient does appear lethargic with slurred words. Patient also refused Narcan in ER as she says it makes her feel funny. -Normal saline 100 mL/h ordered -We will hold patient's home sedating medications at this time 2. Tobacco abuse -Nicotine patch ordered -Inpatient smoking cessation ordered 3. Anxiety and depression -We will continue patient's home buspirone, clonidine, Topamax. -We will hold Seroquel and trazodone at this time due to patient's lethargic presentation in ER. DVT prophylaxis-low risk, encourage ambulation This patient was seen by Bailey Richards NP-C under the supervision of Dr. Cani. 29 minutes spent in clinical coordination of patient's plan of care. Documented by User: Dr. Anali Cain MD 09/29/21 19:06 HPI - General General Date of Admission: 09/29/21 [facility] Medical History (Updated 09/29/21 @ 19:04 by Chichi Olivera) Anxiety Depression Migraines Seizures Smoker Substance abuse Home Medications buspirone [BuSpar] 15 mg PO TID 05/11/21 [History Last Taken 05/11/21] clonidine HCl 0.1 mg PO TID 05/11/21 [History Last Taken 05/11/21] ondansetron HCl [Zofran] 4 mg PO Q6H PRN 05/11/21 [History Last Taken Unknown] quetiapine [Seroquel] 50 mg PO QHS 05/11/21 [History Last Taken 05/10/21] melatonin 5 mg PO QHS 09/29/21 [History Last Taken Unknown] topiramate 50 mg PO BID 09/29/21 [History Last Taken Unknown] trazodone 50 mg PO QHS 09/29/21 [History Last Taken Unknown] Allergy/AdvReac Type Severity Reaction Status Date / Time No Known Allergies Allergy Verified 09/29/21 14:45 Family History unable to obtain Surgical History (Updated 09/29/21 @ 19:04 by Chichi Olivera) H/O dilation and curettage Surgical History no surgical history Social History Smoking Status: Current every day smoker tobacco type: cigarettes Results Lab / Micro Data Result Diagrams: 09/29/21 16:25 09/29/21 16:25 Charges/Coding Addendum Addendum: This patient was seen in conjunction with Milton Richards NP. I have independently interviewed and examined the patient and reviewed pertinent historical, laboratory, and other data. I have reviewed her note and concur with her documentation 31-year-old female who presents with desire to detox from benzodiazepines and opiate. Patient stated that she last used benzos and opioids?fentanyl and night before admission. She usually has 1 g of fentanyl daily as well as 4 to 6 mg of Xanax. She is however very lethargic. Vitals in the ED were stable. Temperature 96.8 F, heart rate 76, respiratory 16, BP was 97/64, SPO2 was 94% on room air Physical Exam: Gen: Lethargic, not pale, not jaundiced CVS:HS I +II, regular, no murmurs RESP: CTA GI: BS present and normal, soft, nontender, no palpable organs EXT:No edema Labs:CBCD and CMP were unremarkable except AST was 157, ALT was 1 1 ASSESSMENT: 1. Desire for acute opiate and benzodiazepine withdrawal 2. Anxiety/depression 3. Nicotine dependence 4. Elevated liver enzymes, appears chronic Plan: Admit for benzo and opiate withdrawal check hepatitis profile, HIV Continue on home BuSpar, Seroquel, trazodone Time spent taking history, physical exam, independently, coordinating patient's care, discussing with nursin minutes Visit Charges Inpatient E&M: 33924 Init Hosp L2
[2021-09-29 18:56] VITALS: BMI 29.0
[2021-09-29 19:22] VITALS: BP 91/62; PULSE 50; RESP 12; TEMP 36.5; O2SAT 98
[2021-09-29] MEDS: 0.9% Normal Saline 1,000 ML 100 ML IV (20:19)
[2021-09-29] MEDS: 0.9% Saline Lock 10 ML Syringe IV (20:19)
--- NOTE | 2021-09-29 20:27 | NURSING ---
Patient is very drowsy, pupils dilated, speech hard to understand, can't stay awake and won't answer assessment questions, HR is irregular rate is 64. Will continue to monitor. Cow score 2.
[2021-09-29 21:00] LABS: HIV - WCH Non-Reactive (Nonreactive)
[2021-09-30] MEDS: busPIRone 15 MG TABLET PO ×4 (00:18→20:29)
[2021-09-30] MEDS: Topiramate 50 MG Tablet PO ×3 (00:23→20:29)
[2021-09-30 00:34] VITALS: BP 90/65; PULSE 61; RESP 16; TEMP 36.6; O2SAT 97
[2021-09-30] MEDS: 0.9% Normal Saline 1,000 ML 100 ML IV (06:08)
[2021-09-30 09:06] VITALS: BP 109/62; PULSE 86; RESP 14; TEMP 36.3; O2SAT 97
[2021-09-30] MEDS: Phenobarbital 32.4 MG Tablet 64.8 MG PO ×4 (09:17→20:29)
[2021-09-30] MEDS: Gabapentin 300 MG Capsule PO (09:17)
--- NOTE | 2021-09-30 10:34 | ADDICTION ---
This flex o writer operator met with PT to conduct ASAM, MSE, AUDIT, DUDIT assessments and to plan for d/c. PT A+Ox4 and participated actively. All assessments completed and placed in PT's chart. PT plans to f/u with [facility] for follow-up treatment services. [facility] will provide transportation post d/c from [facility].
[2021-09-30] MEDS: Methocarbamol 750 MG Tablet 1500 MG PO ×2 (11:32→20:30)
[2021-09-30 13:00] VITALS: BP 97/59; PULSE 63; RESP 12; TEMP 36.4; O2SAT 96
--- NOTE | 2021-09-30 14:25 | PN.HOSP_ITS ---
Subjective Subjective Feels ok currently. Objective Data Objective Data Vital Signs: Vital Signs Temp Pulse Resp BP Pulse Ox 36.4 C L 63 12 97/59 L 96 09/30/21 13:00 09/30/21 13:00 09/30/21 13:00 09/30/21 13:00 09/30/21 13:00 Oxygen Delivery Method Room Air Weight: 76.702 kg Body Mass Index (BMI) 29.0 Intake & Output: Intake and Output for Last 24 Hours 09/28/21 09/29/21 09/30/21 23:59 23:59 23:59 Intake Total 1000 / 1000 981.67 / 981.67 Balance 1000 / 1000 981.67 / 981.67 Lab / Micro Data Result Diagrams: 09/29/21 16:25 09/29/21 16:25 Labs: Laboratory Results - last 24 hr 09/29/21 16:25: WBC 8.1, RBC 4.75, Hgb 14.5, Hct 40.8, MCV 85.9, MCH 30.5, MCHC 35.5, RDW Std Deviation 39.3, RDW Coeff of Juan 12.5, Plt Count 225, MPV 10.1, Immature Gran % (Auto) 0.200, Neut % (Auto) 43.1 L, Lymph % (Auto) 43.4 H, [place] % (Auto) 6.3, Eos % (Auto) 6.5 H, Baso % (Auto) 0.5, Absolute Neuts (auto) 3.5, Absolute Lymphs (auto) 3.50, Nucleated RBC % 0 09/29/21 16:25: Sodium 139, Potassium 3.5, Chloride 107, Carbon Dioxide 27.0, Anion Gap 5, BUN 12, Creatinine 0.74, Estim Creat Clear Calc 94.25, Est GFR (MDRD) Af Amer 118, Est GFR (MDRD) Non-Af 97, BUN/Creatinine Ratio 16.3, Glucose 110 H, Calcium 8.8, Total Bilirubin 0.50, AST 157 H, ALT 118 H, Alkaline Phosphatase 97, Total Protein 7.5, Albumin 3.6, Globulin 3.9, Albumin/Globulin Ratio 0.9 09/29/21 16:25: Ethyl Alcohol < 3.0 09/29/21 16:25: Serum , Qual NEGATIVE 09/29/21 16:25: HIV 1&2 Antibody Non-Reactive 09/29/21 16:52: Urine Opiates Screen NEGATIVE, Urine Methadone Screen NEGATIVE, Ur Barbiturates Screen NEGATIVE, Ur Phencyclidine Scrn NEGATIVE, Ur Amphetamines Screen NEGATIVE, U Methamphetamin-MDMA POSITIVE H, U Benzodiazepines Scrn POSITIVE H, Urine Cocaine Screen NEGATIVE, U Cannabinoids Screen NEGATIVE, Ur Drug Screen Comment Physical Exam Const alert and no apparent distress Resp normal respiratory effort, no retractions and no use of accessory muscles Cardio regular rate, regular rhythm, S1 normal heart sound and S2 normal heart sound GI normal to inspection, nondistended, normoactive bowel sounds, soft to palpation, non-tender and non-distended Extremity normal to inspection Assessment & Plan Assessment/Plan (1) Opiate withdrawal: (2) Benzodiazepine withdrawal: QUALIFIERS: Complication of substance-induced condition: uncomplicated Qualified Code(s): F13.230 - Sedative, hypnotic or anxiolytic dependence with withdrawal, uncomplicated PLAN: 1. Acute opiate withdrawal On buprenorphine taper 2. benzodiazepine withdrawal on phenobarbital taper. Charges/Coding Visit Charges Inpatient E&M: 65555 Subs Hosp L2
[2021-09-30 16:53] VITALS: BP 98/63; PULSE 55; RESP 14; TEMP 36.6; O2SAT 97
[2021-09-30] MEDS: QUEtiapine 25 MG Tablet 50 MG PO (20:30)
[2021-09-30 20:31] VITALS: BP 97/69; PULSE 55; RESP 16; TEMP 36.8; O2SAT 96
[2021-10-01] VITALS (7 sets, daily range): BP systolic 88–104; BP diastolic 56–77; PULSE 56–68; RESP 16–18; TEMP 36.4–37.1; O2SAT 95–99
[2021-10-01] MEDS: Phenobarbital 32.4 MG Tablet 64.8 MG PO ×6 (00:33→21:00)
[2021-10-01] MEDS: Gabapentin 300 MG Capsule PO (05:03)
[2021-10-01] MEDS: Methocarbamol 750 MG Tablet 1500 MG PO ×3 (05:03→21:21)
[2021-10-01] MEDS: Ondansetron 8 MG Tablet PO (05:03)
[2021-10-01] MEDS: busPIRone 15 MG TABLET PO ×3 (05:06→21:01)
[2021-10-01] MEDS: Topiramate 50 MG Tablet PO ×2 (07:46→21:02)
[2021-10-01 08:09] LABS: HEPATITIS B SURFACE AG Negative (Negative); Hepatitis A IgM Antibody Negative (Negative); Hepatitis B Core AB IgM Negative (Negative)
[2021-10-01] MEDS: hydrOXYzine PAM 25 MG Capsule 50 MG PO (12:07)
--- NOTE | 2021-10-01 12:50 | PCM.PN.HOSP ---
Subjective Subjective has been very groggy and has not received buprenorphine. Objective Data Objective Data Vital Signs: Vital Signs Temp Pulse Resp BP Pulse Ox 36.4 C L 62 16 104/77 99 10/01/21 12:19 10/01/21 12:19 10/01/21 12:19 10/01/21 12:19 10/01/21 12:19 Oxygen Delivery Method Room Air Weight: 76.702 kg Body Mass Index (BMI) 29.0 Intake & Output: Intake and Output for Last 24 Hours 09/29/21 09/30/21 10/01/21 23:59 23:59 23:59 Intake Total 1000 / 1000 1568.34 / 1568.34 300 / 300 Balance 1000 / 1000 1568.34 / 1568.34 300 / 300 Lab / Micro Data Result Diagrams: 09/29/21 16:25 09/29/21 16:25 Physical Exam Const alert Constitutional Narrative: slightly groggy, but answers questions appropriately. Psych affect normal Mood & Affect: depressed Assessment & Plan Assessment/Plan (1) Opiate withdrawal: (2) Benzodiazepine withdrawal: QUALIFIERS: Complication of substance-induced condition: uncomplicated Qualified Code(s): F13.230 - Sedative, hypnotic or anxiolytic dependence with withdrawal, uncomplicated PLAN: 1. Acute opiate withdrawal Had not received buprenorphine due to her being too groggy and BP being marginal Plan for residential program on 10/03 2. benzodiazepine withdrawal on phenobarbital taper. Charges/Coding Visit Charges Inpatient E&M: 81895 Subs Hosp L1
[2021-10-01 13:19] LABS: Hep C Antibodies >11.0 s/co ratio (0.0-0.9)
--- NOTE | 2021-10-01 17:00 | CHAPLAIN ---
Type of Pastoral Visit ___ Initial Visit ___ Follow-up Visit ___ On-call Visit ___ General Patient Visit ___ Spiritual Assessment ___ Family Conference ___ Bereavement ___ Rapid Response ___ Code Blue _x__ Other (describe below) Pastoral Care Referral From _x__ Patient ___ Family ___ Nurse ___ Physician ___ Candle Molder ___ Helper Coordinator ___ Other (describe below) Sacrament/Intervention ___ Active listening ___ Anointing ___ Catholic ___ Bereavement ___ Communion ___ Marina exploration ___ ___ Life review ___ Prayer ___ Reconciliation ___ Sacrament of Sick ___ Supportive presence ___ Wedding _x__ Other (describe below) Pastoral Comments three attempts made over last two days to visit and support this patient and each time the patient was sleeping; at first visit this day the patient did awaken from sleep but requested a return visit later today; on return the patient is again sound asleep
[2021-10-01] MEDS: QUEtiapine 25 MG Tablet 50 MG PO (21:02)
[2021-10-02 00:23] VITALS: BP 81/54; PULSE 55; RESP 16; TEMP 36.3; O2SAT 97
[2021-10-02] MEDS: Ondansetron 8 MG Tablet PO (00:44)
[2021-10-02 02:58] VITALS: PULSE 66; O2SAT 96
[2021-10-02 04:12] VITALS: BP 90/68; PULSE 57; RESP 14; TEMP 36.1; O2SAT 98
[2021-10-02 06:36] VITALS: PULSE 57; RESP 18; O2SAT 97
[2021-10-02] MEDS: busPIRone 15 MG TABLET PO (06:38)
[2021-10-02] MEDS: Phenobarbital 32.4 MG Tablet 64.8 MG PO (06:52)
--- NOTE | 2021-10-02 07:05 | NURSING ---
Bag of pills discovered by [employer] in pt's pocket when taking pt to the bathroom. Pills confiscated. Director notified and given bag of pills. Dr Powell notified also.
--- NOTE | 2021-10-02 07:10 | NURSING ---
Security notified of bag of pills being found. Will notify the HRO to come up to the unit.
[2021-10-02 07:15] VITALS: O2SAT 96
--- NOTE | 2021-10-02 07:19 | NURSING ---
Graciela DIMAS given bag of pills. Going to speak with patient.
--- NOTE | 2021-10-02 07:45 | NURSING ---
HRO Graciela remains bedside, Printed MAR and Home Med list given to patient and HRO as requested.
[2021-10-02 08:45] VITALS: BP 118/73; PULSE 81; RESP 16; TEMP 36.8; O2SAT 99
--- NOTE | 2021-10-02 08:45 | NURSING ---
dr jessica in to see pt. pt upset and wanting to leave ama. pt signed ama papers. pt belongings released to pt.
--- NOTE | 2021-10-02 08:54 | NURSING ---
talked with Denny from [facility], updated on patient's situation from this a.m.
--- NOTE | 2021-10-02 11:29 | DS.PCM_ITS ---
Providers Date of Admission: 09/29/21 Primary Care Physician: Lindy Alvarenga Reason For Visit: DETOX Diagnosis Discharge Diagnosis (1) Opiate withdrawal: Status: Acute Code(s): F11.23 - Opioid dependence with withdrawal (2) Benzodiazepine withdrawal: Status: Acute Code(s): F13.239 - Sedative, hypnotic or anxiolytic dependence with withdrawal, unspecified Qualifiers: Complication of substance-induced condition: uncomplicated Qualified Code(s): F13.230 - Sedative, hypnotic or anxiolytic dependence with withdrawal, uncomplicated Medications at Discharge Home Medications buspirone [BuSpar] 15 mg PO TID 05/11/21 clonidine HCl 0.1 mg PO TID 05/11/21 ondansetron HCl [Zofran] 4 mg PO Q6H PRN 05/11/21 quetiapine [Seroquel] 50 mg PO QHS 05/11/21 gabapentin 300 mg PO BID 09/29/21 melatonin 5 mg PO QHS 09/29/21 [id number]-rdpr-HM-calcium-mins [Therapeutic-M] 1 tab PO DAILY 09/29/21 topiramate 50 mg PO BID 09/29/21 trazodone 50 mg PO QHS 09/29/21 Hospital Course Procedures None Summary of Care Provided Minutes Spent on Discharge: 32 Hospital Course: This is a 31-year-old female presents seeking treatment for opiate and benzo withdrawal. Patient was on phenobarbital and ordered buprenorphine. Patient was too groggy to receive buprenorphine but was on phenobarbital. This found out today that patient had been concealing medications and. The Saran wrap that was concealed in her vagina. When I was made aware of this I discontinued all potentiating medications for her in regards to her somnolence. Patient then was insisting on leaving AGAINST MEDICAL ADVICE. Patient was sitting at bedside and immediately began accusing me of not treating her and with holding medications. This had only been a short period of time prior to this. Patient say that I to kick her out of the hospital which I never was planning on doing so until she was ready for discharg e and the plan was for the patient be discharged on the fourth to residential program. The patient that she could stay and so that she can be enrolled in her residential program but she insisted on leaving AGAINST MEDICAL ADVICE but refused take any responsibility and stated that we are not giving her medications. She said to a count. I told her that we do not have drug screen for all the medications that she takes but she said to a pill count of the medications that she was concealing. Not sure how 1 would do that with medication that is being concealed. But it appeared that the patient was well- intentioned in regards to concealing medications, hiding in her vagina and not informing the staff about it. Patient left AGAINST MEDICAL ADVICE. Physical Exam Const alert Constitutional Narrative: Angry and wide-awake. Weight / BMI Weight Weight: 76.702 kg Body Mass Index (BMI) 29.0 ABG / Lab / Microbiology Data Result Diagrams: 09/29/21 16:25 09/29/21 16:25 Laboratory: Laboratory Results - last 24 hr 09/29/21 16:25: Hepatitis A IgM Ab Negative, Hep Bs Antigen Negative, Hep B Core IgM Ab Negative, Hepatitis C Ab (EIA) >11.0 H Meaningful Use Info Meaningful Use Diagnoses (Choose all that apply): None applicable Discharge Plan Admission Admit Date/Time: 09/29/21 17:41 Attending Provider: Canelo Powell Discharge Orders/Prescriptions Prescriptions: No Action clonidine HCl 0.1 mg Tablet 0.1 mg PO TID RF: 0 ondansetron HCl [Zofran] 4 mg Tablet 4 mg PO Q6H PRN (Reason: Nausea) RF: 0 buspirone [BuSpar] 15 mg Tablet 15 mg PO TID RF: 0 quetiapine [Seroquel] 50 mg Tablet 50 mg PO QHS RF: 0 trazodone 50 mg tablet 50 mg PO QHS RF: 0 topiramate 50 mg tablet 50 mg PO BID RF: 0 melatonin 5 mg capsule 5 mg PO QHS RF: 0 gabapentin 300 mg capsule 300 mg PO BID RF: 0 Therapeutic-M 9 mg iron-400 mcg tablet 1 tab PO DAILY RF: 0 Referrals / Follow Up: Lindy Alvarenga [Other] Disposition Disposition (needs filled in before D/C Order can be placed): Against Medical Advice Charges/Coding Visit Charges Inpatient E&M: 96056 Disch Hosp
--- NOTE | 2021-10-02 14:39 | NURSING ---
at JUDIE Owens's request, home meds that had been recovered this a.m. sent to pharmacy via secure tube to be destroyed as patient is no longer here.
== END 2021-10-02 10:52 | disposition left against medical advice (07) | DRG 770 ==
LOC: ED 15:45 → MS3 17:55
PROVIDERS: Admitting Provider Internal Medicine; Emergency Provider Student in an Organized Health Care Education/Training Program
DX: F11.23 Opioid dependence with withdrawal (principal); F17.210 Nicotine dependence, cigarettes, uncomplicated; F13.239 Sedative, hypnotic or anxiolytic dependence with withdrawal, unspecified; F41.9 Anxiety disorder, unspecified; F32.A Depression, unspecified; R74.8 Abnormal levels of other serum enzymes; Z79.899 Other long term (current) drug therapy
CPT/HCPCS: 80053; 80074; 80307; 82077; 84703; 85025; 86703; 99285; J7030; J7120; A4216; J2310